=== PATIENT | female | born 1950 | race Caucasian/White ===

== ENCOUNTER 2016-11-23 05:21 | Emergency (ER) | payer BC ==
[~2016-11-23 05:21] MED LIST: ENAL10TA7 PO; LEVO50TA4 PO; LOVA40TA PO
[2016-11-23 05:23] VITALS: BP 184/85; PULSE 84; RESP 18; TEMP 98.7; O2SAT 98
[2016-11-23] MEDS ORDERED: LEVO50TA4 PO (05:41)
[2016-11-23] MEDS ORDERED: VITA400T14 PO (05:41)
[2016-11-23] MEDS ORDERED: MELO7.5T4 PO (05:41)
[2016-11-23] MEDS ORDERED: GABA300C5 PO (05:41)
[2016-11-23] MEDS ORDERED: FOLI20CA PO (05:41)
[2016-11-23] MEDS ORDERED: CALC1TAB12 PO (05:41)
[2016-11-23] MEDS ORDERED: ENAL10TA PO (05:41)
[2016-11-23] MEDS ORDERED: OMEP20TA PO (05:41)
[2016-11-23] MEDS ORDERED: LOVA20TA PO (05:41)
[2016-11-23] MEDS ORDERED: CYAN1TAB24 (05:41)
[2016-11-23] MEDS ORDERED: MULT-154 (05:41)
--- NOTE | 2016-11-23 05:46 | PD ---
HPI Chief Complaint: Pain: Acute or Chronic Time Seen by Provider: 05:33 Travel History International Travel<30 days: No Contact w/Intl Traveler<30days: No Traveled to known affect area: No History of Present Illness HPI The patient was seen and examined in the presence of the nurse. He complains of pain in the right flank. Duration is 10 hours. Severity is moderate to at times severe. No alleviating factors. She does not have fever or urinary complaints. No injury. She says that the pain is similar to an episode of pain she had 4 years ago and was determined to be shingles. However she has no rash. PFSH Past Medical History Cancer: Yes (HODGKIN'S LYMPHOMA 2002) Cardiovascular Problems: No Diabetes: No Endocrine: Yes Gastrointestinal Disorders: Yes (BEGINNING ONSET OF MIKE'S ESOPHAGUS) Genitourinary: No Hepatitis: No Hiatal Hernia: No Hypertension: Yes Immune Disorder: No Medical other: Yes (HX SHINGLES 2012) Musculoskeletal: Yes (LEFT THUMB TRIGGER FINGER ) Neurologic: No Psychiatric: No Respiratory: No Thyroid Disease: Yes Ectopic : Yes (1987) Past Surgical History Abdominal Surgery: Yes (CHOLECY, LAP) AICD: No Body Medical Devices: NONE Gynecologic Surgery: Yes (1992 HYSTERECTOMY;) Joint Replacement: No Pacemaker: No Thoracic Surgery: Yes (BENIGN CYST EXCISED LEFT BREAST 1997) Other Surgery: Yes Social History Alcohol Use: Yes Tobacco Use: No Substance Use: No Allergies-Medications (Allergen,Severity, Reaction): Coded Allergies: Amoxicillin (Unverified Adverse Reaction, Unknown, METALLIC TASTE IN MOUTH , 11/23/16) Reported Meds & Prescriptions Reported Meds & Active Scripts Active Reported Calcium 500 +D (Calcium Carbonate-Cholecalciferol) 500-400 Mg-Unit Tab 1 Tab PO BID Daily Multivitamin with Iron (Multivitamin with Iron) 1 Each Tablet Folic Acid 20 Mg Cap 200 Mcg PO DAILY B12 (Cyanocobalamin) 1,000 Mcg Tab Omeprazole 20 Mg Tab 20 Mg PO DAILY Vitamin D2 (Ergocalciferol) 400 Unit Tab 1.25 Mg PO DAILY Gabapentin 300 Mg Cap 300 Mg PO DAILY Meloxicam 7.5 Mg Tab 7.5 Mg PO DAILY Lovastatin 20 Mg Tab 20 Mg PO DAILY Levothyroxine (Levothyroxine Sodium) 50 Mcg Tab 50 Mcg PO DAILY Enalapril (Enalapril Maleate) 10 Mg Tab 10 Mg PO BID Review of Systems General / Constitutional: No: Fever Eyes: No: Visual changes HENT: No: Headaches Cardiovascular: No: Chest Pain or Discomfort Respiratory: No: Shortness of Breath Gastrointestinal: No: Abdominal Pain Genitourinary: Positive: Flank Pain, No: Dysuria Musculoskeletal: No: Pain Skin: No Rash Neurologic: No: Weakness Psychiatric: No: Depression Endocrine: No: Polydipsia Hematologic/Lymphatic: No: Easy Bruising Physical Exam Narrative GENERAL: Well-nourished, well-developed patient with right flank pain. SKIN: Focused skin assessment reveals no rash and nodules. Skin is Warm and dry. HEAD: Atraumatic. Normocephalic. EYES: Pupils equal and round. No scleral icterus. No injection or drainage. ENT: No nasal bleeding or discharge. Mucous membranes pink and moist. NECK: Trachea midline. No JVD. CARDIOVASCULAR: Regular rate and rhythm. No murmur appreciated. RESPIRATORY: No accessory muscle use. Clear to auscultation. Breath sounds equal bilaterally. GASTROINTESTINAL: Abdomen soft, non-tender, nondistended. Hepatic and splenic margins not palpable. MUSCULOSKELETAL: No obvious deformities. No clubbing. No cyanosis. No edema. NEUROLOGICAL: Awake and alert. No obvious cranial nerve deficits. Motor grossly within normal limits. Normal speech. PSYCHIATRIC: Appropriate mood and affect; insight and judgment normal. Data Data Last Documented VS Vital Signs Date Time Temp Pulse Resp B/P Pulse Ox O2 Delivery O2 Flow Rate FiO2 11/23/16 05:23 98.7 84 18 184/85 98 Room Air Orders Urinalysis - C+S If Indicated (11/23/16 05:43) Ct Abd/Pel W/O Iv Contrast (11/23/16 ) Ondansetron Inj (Zofran Inj) (11/23/16 06:00) Ketorolac Inj (Toradol Inj) (11/23/16 06:00) Morphine Inj (Morphine Inj) (11/23/16 06:00) Labs Laboratory Tests Test 11/23/16 05:45 Urine Color YELLOW Urine Turbidity CLEAR Urine pH 5.5 Urine Specific [place] 1.024 Urine Protein TRACE mg/dL Urine Glucose (UA) NEG mg/dL Urine Ketones NEG mg/dL Urine Occult Blood NEG Urine Nitrite NEG Urine Bilirubin NEG Urine Urobilinogen LESS THAN 2.0 MG/DL Urine Leukocyte Esterase MOD Urine RBC 1 /hpf Urine WBC 7 /hpf Urine Squamous Epithelial <1 /hpf Cells Urine Renal Epithelial Cells <1 /hpf Urine Bacteria RARE /hpf Urine Mucus FEW /lpf Microscopic Urinalysis Comment CULT NOT INDICATED MDM Medical Decision Making Medical Screen Exam Complete: Yes Emergency Medical Condition: Yes Medical Record Reviewed: Yes Differential Diagnosis Sciatica, lumbar strain, pyelonephritis, kidney stone, shingles Narrative Course I have reviewed the patient's electronic medical record. She has been here before for lymphoma Urinalysis does not show significant infection CT of abdomen and pelvis is negative for aneurysm or stone No objective findings on exam. I wrote her some tramadol and some acyclovir. She thinks that she may be developing early shingles Diagnosis Primary Impression: Acute right flank pain Departure Forms: Tests/Procedures Additional Instructions: The patient was advised to follow up with their physician and return if they worsen. The patient was warned about potential sedation for the medications they will receive on prescription. Med/Other Pt SpecificInfo: Prescription(s) given Scripts Acyclovir 800 Mg [id number] Mg PO TID #20 TAB Ref 0 Prov:Surendra Sparks MD 11/23/16 Tramadol 50 Mg Tab50 Mg PO Q6H PRN (PAIN) #20 TAB Ref 0 Prov:Surendra Sparks MD 11/23/16 Disposition: 01 DISCHARGE HOME Condition: Stable Surendra Sparks MD Nov 23, 2016 05:46
[2016-11-23] MEDS ORDERED: ONDANSETRON HCL 4 MG/2 ML VIAL IM ONE (06:00)
[2016-11-23] MEDS ORDERED: KETOROLAC TROMETHAMINE 60 MG/2 ML (IM) VIAL IM ONE (06:00)
[2016-11-23] MEDS ORDERED: MORPHINE SULFATE 4 MG/ML INJ IM ONE (06:00)
[2016-11-23 06:03] LABS: BACTERIA, URINE RARE /hpf; BLOOD, URINE NEG (NEG); COMMENT (UR) CULT NOT INDICATED; CULTURE IF INDICATED CULT NOT INDICATED; GLUCOSE,URINE NEG (NEG); KETONE, URINE NEG (NEG); MUCUS URINE FEW /lpf (OCC); NITRITE,URINE NEG (NEG); PH, URINE 5.5 (5.0-8.5); RENAL EPITHELIAL CELLS <1 /hpf; SQUAMOUS EPITHELIAL CELL URINE <1 /hpf (0-5); URINE COLOR YELLOW (YELLW/STRAW)
--- NOTE | 2016-11-23 06:17 | RADRPT ---
EXAM DATE/TIME: 11/23/2016 05:53 [facility] COMPARISON: No previous studies available for comparison. INDICATIONS : Right sided abdominal pain. Evaluate for calculi. ORAL CONTRAST: No oral contrast ingested. RADIATION DOSE: 9.96 CTDIvol (mGy) MEDICAL HISTORY : Hypertension. Barretts esophagus. Hodgkins Lymphoma. SURGICAL HISTORY : Cholecystectomy. Hysterectomy. ENCOUNTER: Initial ACUITY: 1 day PAIN SCALE: 4/10 LOCATION: Right abdomen TECHNIQUE: Volumetric scanning of the abdomen and pelvis was performed. Using automated exposure control and ad justment of the mA and/or kV according to patient size, radiation dose was kept as low as reasonably achievable to obtain optimal diagnostic quality images. DICOM format image data is available electro nically for review and comparison. FINDINGS: LOWER LUNGS: The visualized lower lungs are clear. LIVER: Homogeneous density without lesion. There is no dilation of the biliary tree. No calcified gallston es. Cholecystectomy clips. SPLEEN: Normal size without lesion. PANCREAS: Within normal limits. KIDNEYS: Normal in size and shape. There is no mass, stone, or hydronephrosis. ADRENAL GLANDS: Within normal limits. VASCULAR: There is no aortic aneurysm. BOWEL/MESENTERY: Diverticulosis without diverticulitis. Post surgical changes of the stomach. There is no free intrap eritoneal air or fluid. Normal appendix. ABDOMINAL WALL: Within normal limits. RETROPERITONEUM: There is no lymphadenopathy. BLADDER: No wall thickening or mass. REPRODUCTIVE: Status post hysterectomy.. INGUINAL: There is no lymphadenopathy or hernia. MUSCULOSKELETAL: Degenerative changes lower lumbar spine. CONCLUSION: 1. No renal calculi or hydronephrosis. 2. Diverticulosis without diverticulitis. 3. Status post cholecystectomy and hysterectomy. Carlos Prieto MD on November 23, 2016 at 6:10 Board Certified Radiologist. This report was verified electronically.
[2016-11-23] MEDS ORDERED: TRAM50TA PO (06:26)
[2016-11-23] MEDS ORDERED: ACYC800T PO (06:26)
--- NOTE | 2016-11-23 16:44 | EKG ---
Date Performed: 11/23/2016 Time Performed: 05:37:27 PTAGE: 65 years EKG: Sinus rhythm NORMAL ECG PREVIOUS TRACING : 06/29/2002 16.47 Compared to prior tracing no significant change DOCTOR: Irma Duran Interpretating Date/Time 11/23/2016 16:43:22
== END 2016-11-23 06:52 | disposition home or self-care (01) ==
LOC: NEPC 05:21
DX: R10.9 Unspecified abdominal pain (principal); E07.9 Disorder of thyroid, unspecified; Z85.71 Personal history of Hodgkin lymphoma
CPT/HCPCS: 74176; 81001; 93005; 96372; 99285; J1885; J2270; J2405

== ENCOUNTER → 2017-02-26 | Day surgery (SDC) | payer BC ==
[~2017-02-26] MED LIST changes: +ACETAMINOPHEN/HYDROcodone 325 MG/5 MG TAB ONE; +ACYC800T PO; +CALC1TAB12 PO; +CYAN1TAB24; +ENAL10TA PO; -ENAL10TA7 PO; +FOLI20CA PO; +GABA300C5 PO; +KETOROLAC TROMETHAMINE 30 MG/ML (IVP) VIAL IV PUSH ONE; +LACTATED RINGER'S 1000 ML INJ 1,000 ML ONE; +LOVA20TA PO; -LOVA40TA PO; +MELO7.5T4 PO; +MIDAZOLAM HCL 2 MG/2 ML VIAL ONE; +MULT-154; +OMEP20TA PO; +ONDANSETRON HCL 4 MG/2 ML VIAL IV PUSH ONE; +PROPOFOL 200 MG/20 ML AMP IV ONE; +TRAM50TA PO; +TRIAMCINOLONE ACETONIDE 40 MG/ML VIAL ONE; +VITA400T14 PO; +ceFAZolin INJ 1,000 MG VIAL ONE
--- NOTE | 2017-02-27 07:40 | TN ---
cc: ARELY MCDONOUGH M.D. DATE OF SURGERY: 02/26/2017 PREOPERATIVE DIAGNOSIS Right knee internal derangement. POSTOPERATIVE DIAGNOSIS Right knee complex tear medial meniscus, moderate chondromalacia medial compartment, mild chondromalacia patellofemoral compartment. PROCEDURE Right knee arthroscopic surgery - subtotal medial meniscectomy. SURGEON Sita Mcdonough MD. ASSESSMENT Staff. SPECIMEN None. ESTIMATED BLOOD LOSS None. COMPLICATIONS None. ANESTHESIA General. DRAINS None. TOURNIQUET TIME 14 minutes at 250 mmHg. CONDITION Stable. PLAN OF ACTIVITY Per orders. DETAILS OF PROCEDURE The patient was brought into the operating room and had satisfactory general endotracheal anesthesia by Dr. Gurrola of Department of Anesthesia. The right lower extremity was prepped and draped in the usual sterile manner. The extremity was exsanguinated by Albert wrap and the tourniquet was inflated to 250 mmHg. Routine anterolateral and anteromedial portals were made. Introduction of the arthroscopic instrumentation was made. The knee was inflated with sterile Ringer's lactate solution. The patellofemoral compartment revealed mild to moderate degree of synovitis. The patient was found to have mild chondromalacia involving the patellofemoral compartment. The lateral compartment showed mild chondromalacia. The lateral meniscus showed minimal degenerative changes with no tears. No loose bodies were seen. The anterior cruciate ligament was found to be intact. No evidence of recent or remote injury. The medial compartment showed the patient to have a complex tear involving the medial meniscus with a moderate grade chondromalacia involving the medial tibial plateau and the medial femoral condyle. The patient also had multiple small cartilaginous loose bodies within the medial compartment. Subtotal medial meniscectomy was performed using different types of meniscal rongeurs and a shaver. Multiple small cartilaginous loose bodies in the medial compartment were removed by the shaver. Chondroplasty with shave of the articular surface was performed satisfactorily. The arthroscopic instruments were removed. The wound was irrigated with copious amounts of Ringer's lactate solution. The knee was injected with 1 cc of Kenalog 40. The tourniquet was deflated. The incisions were closed 3-0 nylon suture. Sterile dressings were applied. The patient tolerated the procedure well and arrived in the recovery room in stable and satisfactory condition. MD ROSELINE Lassiter/CANDICE /2:26 PM /2:35 PM
== END | disposition home or self-care (01) ==
LOC: ESDC 11:44
PROVIDERS: ATTEND Orthopaedic Surgery Orthopaedic Surgery of the Spine
DX: S83.231A Complex tear of medial meniscus, current injury, right knee, initial encounter (principal); M94.261 Chondromalacia, right knee
CPT/HCPCS: 01400; 29881; J0690; J1885; J2250; J2405; J3010; J3301; J7120